=== PATIENT | female | born 1990 | race American Indian/Alaskan Native ===

== ENCOUNTER 2017-04-26 09:35 | Emergency (ER) | payer OTHER ==
[2017-04-26 10:42] LABS: Basophils % (Auto) 0.2 % (0.0-1.8); Eosinophils % (Auto) 0.7 % (0.0-4.3); Hematocrit 35.7 % (30.3-42.9); Hemoglobin 12.1 gm/dl (10.1-14.3); Mean Corpuscular HGB Conc 34 % (30-34); Mean Corpuscular Hemoglobin 30 pg (28-32); Mean Corpuscular Volume 90 fl (79-97); Platelet Count 223 K/mm3 (140-440); Red Blood Count 3.99 M/mm3 (3.65-5.03); Red Cell Distribution Width 12.9 % (13.2-15.2); White Blood Count 5.6 K/mm3 (4.5-11.0)
[2017-04-26 11:08] LABS: Alanine Aminotransferase 12 units/L (7-56); Albumin 4.4 g/dL (3.9-5); Albumin/Globulin Ratio 1.4 %; Alkaline Phosphatase 52 units/L (35-129); Anion Gap 19 mmol/L; Blood Urea Nitrogen 8 mg/dL (7-17); Calcium 8.9 mg/dL (8.4-10.2); Carbon Dioxide 21 mmol/L (22-30); Glucose 77 mg/dL (65-100); Potassium 4.1 mmol/L (3.6-5.0); Sodium 137 mmol/L (137-145); Total Protein 7.5 g/dL (6.3-8.2)
--- NOTE | 2017-04-26 11:17 | Emergency Department Report ---
ED HPI - General Chief complaint: Vaginal Bleeding Stated complaint: CRAMPING/ BLEEDING Time Seen by Provider: 04/26/17 10:44 Source: patient Mode of arrival: Ambulatory Limitations: No Limitations - History of Present Illness Initial comments: female here with complaint of small amount of bright red blood vaginally. Patient states that this started last night into today. She is no fevers chills nausea vomiting. She is followed by an OB group and had a ultrasound on that confirmed an IUP. MD Complaint: abdominal pain -: Sudden Location: pelvis Radiation: none Quality: cramping Associated symptoms: vaginal bleeding. denies: nausea/vomiting, vaginal discharge, abdominal pain, headache, vision changes, malaise, dysparuenia Vaginal bleeding: light :: Yes OB History - Current : no complications OB History - Previous Pregnancies: no complications Pre- care: followed by OB - Related Data Allergies Allergy/AdvReac Type Severity Reaction Status Date / Time No Known Allergies Allergy Unverified 04/26/17 10:13 ED Review of Systems ROS: Stated complaint: CRAMPING/ BLEEDING Other details as noted in HPI Comment: All other systems reviewed and negative Constitutional: denies: chills, fever Eyes: denies: eye pain, eye discharge, vision change ENT: denies: ear pain, throat pain Respiratory: denies: cough, shortness of breath, wheezing Cardiovascular: denies: chest pain, palpitations Endocrine: no symptoms reported Gastrointestinal: denies: abdominal pain, nausea, diarrhea Genitourinary: denies: urgency, dysuria, discharge Musculoskeletal: denies: back pain, joint swelling, arthralgia Skin: denies: rash, lesions Neurological: denies: headache, weakness, paresthesias Psychiatric: denies: anxiety, depression Hematological/Lymphatic: denies: easy bleeding, easy bruising ED Past Medical Hx - Past Medical History Previous Medical History?: No - Surgical History Past Surgical History?: No - Family History Family history: no significant - Social History Smoking Status: Never Smoker Substance Use Type: None ED Physical Exam - General Limitations: No Limitations General appearance: alert, in no apparent distress - Head Head exam: Present: atraumatic, normocephalic - Eye Eye exam: Present: normal appearance - ENT ENT exam: Present: mucous membranes moist - Neck Neck exam: Present: normal inspection - Respiratory Respiratory exam: Present: normal lung sounds bilaterally. Absent: respiratory distress, wheezes, rales - Cardiovascular Cardiovascular Exam: Present: regular rate, normal rhythm. Absent: systolic murmur, diastolic murmur, rubs, gallop - GI/Abdominal GI/Abdominal exam: Present: soft, tenderness (mild suprapubic), normal bowel sounds. Absent: distended, guarding, rebound - Extremities Exam Extremities exam: Present: normal inspection - Back Exam Back exam: Present: normal inspection - Neurological Exam Neurological exam: Present: alert, oriented X3 - Psychiatric Psychiatric exam: Present: normal affect, normal mood - Skin Skin exam: Present: warm, dry, intact, normal color. Absent: rash ED Course Vital Signs 04/26/17 10:13 Temperature 98.2 F Pulse Rate 74 Respiratory 16 Rate Blood Pressure 126/88 O2 Sat by Pulse 100 Oximetry ED Medical Decision Making - Lab Data Result diagrams: 04/26/17 10:20 04/26/17 10:20 Laboratory Results - last 24 hr 04/26/17 04/26/17 10:20 10:20 WBC 5.6 RBC 3.99 Hgb 12.1 Hct 35.7 MCV 90 MCH 30 MCHC 34 RDW 12.9 L Plt Count 223 Lymph % (Auto) 32.2 [place] % (Auto) 7.7 H Eos % (Auto) 0.7 Baso % (Auto) 0.2 Lymph # 1.8 [place] # 0.4 Eos # 0.0 Baso # 0.0 Seg Neutrophils % 59.2 Seg Neutrophils # 3.3 Sodium 137 Potassium 4.1 Chloride 101.0 Carbon Dioxide 21 L Anion Gap 19 BUN 8 Creatinine 0.4 L Estimated GFR > 60 BUN/Creatinine Ratio 20.00 Glucose 77 Calcium 8.9 Total Bilirubin 0.70 AST 16 ALT 12 Alkaline Phosphatase 52 Total Protein 7.5 Albumin 4.4 Albumin/Globulin Ratio 1.4 Laboratory Last Values WBC 5.6 K/mm3 (4.5-11.0) 04/26/17 10:20 RBC 3.99 M/mm3 (3.65-5.03) 04/26/17 10:20 Hgb 12.1 gm/dl (10.1-14.3) 04/26/17 10:20 Hct 35.7 % (30.3-42.9) 04/26/17 10:20 MCV 90 fl (79-97) 04/26/17 10:20 MCH 30 pg (28-32) 04/26/17 10:20 MCHC 34 % (30-34) 04/26/17 10:20 RDW 12.9 % (13.2-15.2) L 04/26/17 10:20 Plt Count 223 K/mm3 (140-440) 04/26/17 10:20 Lymph % (Auto) 32.2 % (13.4-35.0) 04/26/17 10:20 [place] % (Auto) 7.7 % (0.0-7.3) H 04/26/17 10:20 Eos % (Auto) 0.7 % (0.0-4.3) 04/26/17 10:20 Baso % (Auto) 0.2 % (0.0-1.8) 04/26/17 10:20 Lymph # 1.8 K/mm3 (1.2-5.4) 04/26/17 10:20 [place] # 0.4 K/mm3 (0.0-0.8) 04/26/17 10:20 Eos # 0.0 K/mm3 (0.0-0.4) 04/26/17 10:20 Baso # 0.0 K/mm3 (0.0-0.1) 04/26/17 10:20 Seg Neutrophils % 59.2 % (40.0-70.0) 04/26/17 10:20 Seg Neutrophils # 3.3 K/mm3 (1.8-7.7) 04/26/17 10:20 Sodium 137 mmol/L (137-145) 04/26/17 10:20 Potassium 4.1 mmol/L (3.6-5.0) 04/26/17 10:20 Chloride 101.0 mmol/L (98-107) 04/26/17 10:20 Carbon Dioxide 21 mmol/L (22-30) L 04/26/17 10:20 Anion Gap 19 mmol/L 04/26/17 10:20 BUN 8 mg/dL (7-17) 04/26/17 10:20 Creatinine 0.4 mg/dL (0.7-1.2) L 04/26/17 10:20 Estimated GFR > 60 ml/min 04/26/17 10:20 BUN/Creatinine Ratio 20.00 % 04/26/17 10:20 Glucose 77 mg/dL (65-100) 04/26/17 10:20 Calcium 8.9 mg/dL (8.4-10.2) 04/26/17 10:20 Total Bilirubin 0.70 mg/dL (0.1-1.2) 04/26/17 10:20 AST 16 units/L (5-40) 04/26/17 10:20 ALT 12 units/L (7-56) 04/26/17 10:20 Alkaline Phosphatase 52 units/L (35-129) 04/26/17 10:20 Total Protein 7.5 g/dL (6.3-8.2) 04/26/17 10:20 Albumin 4.4 g/dL (3.9-5) 04/26/17 10:20 Albumin/Globulin Ratio 1.4 % 04/26/17 10:20 Urine Color Straw (Yellow) 04/26/17 10:37 Urine Turbidity Clear (Clear) 04/26/17 10:37 Urine pH 6.0 (5.0-7.0) 04/26/17 10:37 Ur Specific [place] 1.008 (1.003-1.030) 04/26/17 10:37 Urine Protein <15 mg/dl mg/dL (Negative) 04/26/17 10:37 Urine Glucose (UA) Neg mg/dL (Negative) 04/26/17 10:37 Urine Ketones Neg mg/dL (Negative) 04/26/17 10:37 Urine Blood Neg (Negative) 04/26/17 10:37 Urine Nitrite Neg (Negative) 04/26/17 10:37 Ur Reducing Substances Not Reportable 04/26/17 10:37 Urine Bilirubin Neg (Negative) 04/26/17 10:37 Urine Ictotest Not Reportable 04/26/17 10:37 Urine Urobilinogen < 2.0 mg/dL (<2.0) 04/26/17 10:37 Ur Leukocyte Esterase Neg (Negative) 04/26/17 10:37 Urine WBC (Auto) < 1.0 /HPF (0.0-6.0) 04/26/17 10:37 Urine RBC (Auto) 1.0 /HPF (0.0-6.0) 04/26/17 10:37 U Epithel Cells (Auto) 1.0 /HPF (0-13.0) 04/26/17 10:37 Urine Bacteria (Auto) 1+ /HPF (Negative) 04/26/17 10:37 - Medical Decision Making Patient is a 27-year-old with slight vaginal bleeding. Given that she has already had an ultrasound that confirmed IUP there is no need to repeat ultrasound here in the emergency department. I discussed at length the plans to have the patient follow up with her OB on Thursday or Thursday. She understands that she has a threatened miscarriage. Critical care attestation.: If time is entered above; I have spent that time in minutes in the direct care of this critically ill patient, excluding procedure time. ED Disposition Clinical Impression: Threatened miscarriage Disposition: DC-01 TO HOME OR SELFCARE Is pt being admited?: No Condition: Stable Instructions: Threatened Miscarriage (ED) Additional Instructions: Follow-up with your OB on Thursday or Thursday of this week. Referrals: PRIMARY CARE, [Primary Care Provider] - 3-5 Days
[2017-04-26 11:30] LABS: Bacteria,Urine 1+ /HPF (Negative); Bilirubin,Urine NEG (Negative); Blood,Urine NEG (Negative); Ketones,Urine NEG (Negative); Leukocyte Esterase,Urine NEG (Negative); Nitrite,Urine NEG (Negative); Protein,Urine <15 mg/dL mg/dL (Negative); Urobilinogen,Urine < 2.0 mg/dL (<2.0); WBC,Urine < 1.0 /HPF (0.0-6.0)
[2017-04-26 11:35] VITALS: BP 121/71
== END 2017-04-26 12:07 | disposition home or self-care (01) ==
LOC: ED 09:35
DX: O20.0 Threatened abortion (principal); Z3A.00 Weeks of gestation of pregnancy not specified
CPT/HCPCS: 36415; 80053; 81001; 81025; 84702; 85025; 99283